=== PATIENT | female | born 2000 | race Two or more races ===

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

== ENCOUNTER 2018-02-27 13:46 | Emergency (ER) | payer SELFPAY ==
--- NOTE | 2018-02-27 14:10 | ER Document Report ---
ED Medical Screen (RME) - General Chief Complaint: Abdominal Pain Stated Complaint: ABDOMEN PAIN Time Seen by Provider: 02/27/18 14:08 Mode of Arrival: Ambulatory Information source: Patient TRAVEL OUTSIDE OF THE [place] IN LAST 30 DAYS: No - HPI Patient complains to provider of: abd pain; ? Onset: This morning - pt has had 2 positive HPT's and is now having abdominal pain - Related Data Allergies/Adverse Reactions: No Known Allergies Allergy (Verified 09/19/17 09:41) Past Medical History Renal/ Medical History: Denies: Hx Peritoneal Dialysis - Immunizations Hx Diphtheria, Pertussis, Tetanus Vaccination: No Physical Exam - Vital signs Vitals: Temp Pulse Resp BP Pulse Ox 98.1 F 73 16 111/61 99 02/27/18 13:50 02/27/18 13:50 02/27/18 13:50 02/27/18 13:50 02/27/18 13:50 Course - Vital Signs Vital signs: Temp Pulse Resp BP Pulse Ox 98.1 F 73 16 111/61 99 02/27/18 13:50 02/27/18 13:50 02/27/18 13:50 02/27/18 13:50 02/27/18 13:50
[2018-02-27 14:35] LABS: ABSOLUTE EOSINOPHILS # (AUTO) 0.1 10^3/uL (0.0-0.6); ABSOLUTE LYMPHOCYTES (AUTO) 2.3 10^3/uL (0.5-4.7); ABSOLUTE MONOCYTES (AUTO) 0.5 10^3/uL (0.1-1.4); ABSOLUTE NEUT (AUTO) 4.4 10^3/uL (1.7-8.2); BASOPHILS % (AUTO) 0.4 % (0-2); HEMATOCRIT 41.3 % (36.0-47.0); HEMOGLOBIN 13.8 g/dL (12.0-15.5); LYMPHOCYTES % (AUTO) 31.6 % (13-45); MEAN CORPUSCULAR HEMOGLOBIN 28.5 pg (27.0-33.4); MEAN CORPUSCULAR HGB CONC 33.4 g/dL (32.0-36.0); MEAN CORPUSCULAR VOLUME 85 fl (80-97); MONOCYTES % (AUTO) 7.3 % (3-13); PLATELET COUNT 282 10^3/uL (150-450); RED BLOOD COUNT 4.85 10^6/uL (3.72-5.28); RED CELL DISTRIBUTION WIDTH 14.5 % (11.5-14.0); SEGMENTED NEUTROPHILS % (AUTO) 59.7 % (42-78); TOTAL CELLS COUNTED % (AUTO) 100 %; WHITE BLOOD COUNT 7.4 10^3/uL (4.0-10.5)
[2018-02-27 14:38] LABS: APPEARANCE,URINE SLIGHTLY-CLOUDY; BILIRUBIN,URINE NEGATIVE (NEGATIVE); COLOR,URINE YELLOW; GLUCOSE, URINE NEGATIVE (NEGATIVE); KETONES,URINE NEGATIVE (NEGATIVE); LEUKOCYTE ESTERASE,URINE NEGATIVE (NEGATIVE); NITRITE,URINE NEGATIVE (NEGATIVE); PROTEIN,URINE NEGATIVE (NEGATIVE); URINE SPECIFIC GRAVITY 1.023
[2018-02-27 14:59] LABS: ALANINE AMINOTRANSFERASE 31 U/L (9-52); ALBUMIN 4.3 g/dL (3.5-5.0); ALKALINE PHOSPHATASE 66 U/L (38-126); ANION GAP 10 (5-19); ASPARTATE AMINO TRANSFERASE 21 U/L (14-36); BILIRUBIN,DIRECT 0.2 mg/dL (0.0-0.4); BILIRUBIN,TOTAL 0.4 mg/dL (0.2-1.3); BLOOD UREA NITROGEN 8 mg/dL (7-20); CALCIUM 9.3 mg/dL (8.4-10.2); CARBON DIOXIDE 25 mmol/L (22-30); CHLORIDE 105 mmol/L (98-107); GLUCOSE 116 mg/dL (75-110); POTASSIUM 3.9 mmol/L (3.6-5.0); SODIUM 140.3 mmol/L (137-145); TOTAL PROTEIN 7.2 g/dL (6.3-8.2)
--- NOTE | 2018-02-27 16:00 | ER Document Report ---
ED GI/ - General Chief Complaint: Abdominal Pain Stated Complaint: ABDOMINAL PAIN Time Seen by Provider: 02/27/18 14:08 Mode of Arrival: Ambulatory Information source: Patient Notes: 18-year-old female presents to ED for complaint of pelvic pain bilaterally starting yesterday. States she had her first positive test on . No discharge or vaginal bleeding. She states this is her second she has a year 2-month-old child. She denies any medical history and denies any surgeries. Patient is alert and oriented speaking in full sentences walks with a even steady gait. I use [employer] cone machine feeder #[id number] for this interview. TRAVEL OUTSIDE OF THE [place] IN LAST 30 DAYS: No - HPI Patient complains to provider of: Pelvic pain, Onset: Yesterday Timing/Duration: Gradual Quality of pain: Sharp Severity at maximum: Moderate Severity in ED: Moderate Pain Level: 3 Location: Pelvis Vaginal bleeding (Compared to normal period): Spotting LMP: January 04, 2018 : 2 Para: 1 OB ultrasound done: Yes Associated symptoms: Other - Pelvic pain bilateral worse on the left Exacerbated by: Movement, Walking Relieved by: Denies Similar symptoms previously: Yes Recently seen / treated by doctor: No - Related Data Allergies/Adverse Reactions: No Known Allergies Allergy (Verified 09/19/17 09:41) Past Medical History - General Information source: Patient - Social History Smoking Status: Never Smoker Cigarette use (# per day): No Chew tobacco use (# tins/day): No Smoking Education Provided: No Frequency of alcohol use: None Drug Abuse: None Lives with: Family Family History: None, Reviewed & Not Pertinent Patient has suicidal ideation: No Patient has homicidal ideation: No - Past Medical History Cardiac Medical History: Reports: None Pulmonary Medical History: Reports: None EENT Medical History: Reports: None Neurological Medical History: Reports: None Endocrine Medical History: Reports: None Renal/ Medical History: Reports: None Malignancy Medical History: Reports: None GI Medical History: Reports: None Musculoskeletal Medical History: Reports None Skin Medical History: Reports None Psychiatric Medical History: Reports: None Traumatic Medical History: Reports: None Infectious Medical History: Reports: None Surgical Hx: Negative Past Surgical History: Reports: None - Immunizations Immunizations up to date: Yes Hx Diphtheria, Pertussis, Tetanus Vaccination: Yes - 2017 Review of Systems - Review of Systems Constitutional: No symptoms reported EENT: No symptoms reported Cardiovascular: No symptoms reported Respiratory: No symptoms reported Gastrointestinal: No symptoms reported Genitourinary: No symptoms reported Female Genitourinary: No symptoms reported, , Other - Pelvic pain worse on the left Musculoskeletal: No symptoms reported Skin: No symptoms reported Hematologic/Lymphatic: No symptoms reported Neurological/Psychological: No symptoms reported Physical Exam - Vital signs Vitals: Temp Pulse Resp BP Pulse Ox 98.1 F 73 16 111/61 99 02/27/18 13:50 02/27/18 13:50 02/27/18 13:50 02/27/18 13:50 02/27/18 13:50 Interpretation: Normal - General General appearance: Appears well, Alert - HEENT Head: Normocephalic, Atraumatic Eyes: Normal Pupils: PERRL - Respiratory Respiratory status: No respiratory distress Chest status: Nontender Breath sounds: Normal Chest palpation: Normal - Cardiovascular Rhythm: Regular Heart sounds: Normal auscultation Murmur: No - Abdominal Inspection: Normal Distension: No distension Bowel sounds: Normal Tenderness: Tender - Lower abdomen/pelvic tenderness Organomegaly: No organomegaly - Back Back: Normal, Nontender - Extremities General upper extremity: Normal inspection, Nontender, Normal color, Normal ROM , Normal temperature General lower extremity: Normal inspection, Nontender, Normal color, Normal ROM , Normal temperature, Normal weight bearing. No: Linda's sign - Neurological Neuro grossly intact: Yes Cognition: Normal Orientation: AAOx4 [place] Coma Scale Eye Opening: Spontaneous Kamran Coma Scale Verbal: Oriented [place] Coma Scale Motor: Obeys Commands Kamran Coma Scale Total: 15 Speech: Normal Motor strength normal: LUE, RUE, LLE, RLE Sensory: Normal - Psychological Associated symptoms: Normal affect, Normal mood - Skin Skin Temperature: Warm Skin Moisture: Dry Skin Color: Normal Course - Re-evaluation Re-evalutation: 02/28/18 01:26 Of ultrasound results with patient with use of Rosaura interpretator Nitesh. After patient has numerous questions patient did verbalize understanding and agreement with treatment plan. Patient is to follow-up with BUSINESS OPERATIONS ANALYST on Thursday. Name and number of BUSINESS OPERATIONS ANALYST was given to patient. I did attempt to call BUSINESS OPERATIONS ANALYST at the emergency room but the doctor transmission superintendent is a feeling for the weekend and does not schedule patient says states she was not able to tell the office about this patient. I did reinforce to the patient that she needed to call [facility] first thing on Thursday and get a follow-up appointment. - Vital Signs Vital signs: Temp Pulse Resp BP Pulse Ox 97.7 F 76 16 117/65 100 02/27/18 18:02 02/27/18 18:02 02/27/18 18:02 02/27/18 18:02 02/27/18 18:02 - Laboratory Result Diagrams: 02/27/18 14:20 02/27/18 14:20 Laboratory results interpreted by me: 02/27/18 02/27/18 02/27/18 14:20 14:20 14:20 RDW 14.5 H Glucose 116 H Beta HCG, Quant 4118.80 H Urine Urobilinogen 2.0 H Urine HCG, Qual POSITIVE H - Diagnostic Test Radiology reviewed: Image reviewed, Reports reviewed Discharge - Discharge Clinical Impression: Pelvic pain affecting in first trimester, antepartum Condition: Stable Disposition: HOME, SELF-CARE Additional Instructions: Your ultrasound shows a 7-week 2-day gestational sac with a yolk sac but no pole. There is a small 7 x 9 mm cystic area beside the gestational sac. I have given you a copy of all of your labs and ultrasound. The BUSINESS OPERATIONS ANALYST that is transmission superintendent this weekend does not work in the office and cannot schedule a follow- up appointment at this time It is very important that you call BUSINESS OPERATIONS ANALYST on Thursday and schedule a follow-up appointment on Thursday. FOLLOW-UP CARE: If you have been referred to a physician for follow-up care, call the physician s office for an appointment as you were instructed or within the next two days. If you experience worsening or a significant change in your symptoms, notify the physician immediately or return to the Emergency Department at any time for re-evaluation. Forms: Return to Work Referrals: [facility] [Provider Group] - 03/01/18
--- NOTE | 2018-02-27 16:10 | RADIOLOGY REPORT (SQ) ---
EXAM DESCRIPTION: U/S OB TRANSVAG W/DOPPLER COMPLETED DATE/TIME: 02/27/2018 3:48 pm REASON FOR STUDY: abd pain COMPARISON: None. TECHNIQUE: Limited transvaginal grayscale ultrasound for evaluation of specific requested obstetrica l parameters. LIMITATIONS: None. FINDINGS: CERVICAL LENGTH: 2.8 cm Closed. Irregular shape to the presumed gestational sac measuring 2.8 cm in length by 10 mm thickness, this a ppears to contain a small yolk sac measuring 4.4 mm suggesting a 7 week 2 day gestation. No po le is identified at this time. Adjacent to the presumed gestational sac is a 7 x 9 mm cystic area. OTHER: Nonvisualized ovaries. IMPRESSION: Irregular shape to the presumed gestational sac measuring 2.8 cm in length by 10 mm thic kness, this appears to contain a small yolk sac measuring 4.4 mm suggesting a 7 week 2 day gestation. No pole is identified at this time. Adjacent to the presumed gestational sac is a 7 x 9 mm c ystic area. Nonvisualized ovaries. Short interval follow-up is recommended. Trimester of : First trimester - 0 to 13 weeks. TECHNICAL DOCUMENTATION: JOB ID: [id number] [place]-72 2010 [employer]- All Rights Reserved Reading location - IP/workstation name: [email or web address]
[2018-02-27 18:04] VITALS: BP 117/65
== END 2018-02-27 18:02 | disposition home or self-care (01) ==
LOC: ER 13:46
DX: O26.91 Pregnancy related conditions, unspecified, first trimester (principal); R10.2 Pelvic and perineal pain; Z3A.01 Less than 8 weeks gestation of pregnancy
CPT/HCPCS: 36415; 76817; 80053; 81001; 81025; 84702; 85025; 93976; 99284

== ENCOUNTER → 2018-03-22 | Outpatient (CLI) | payer SELFPAY ==
--- NOTE | 2018-03-22 16:16 | RADIOLOGY REPORT (SQ) ---
EXAM DESCRIPTION: U/S [id number] TRNABD 1GES W/ODOP COMPLETED DATE/TIME: 03/22/2018 2:00 pm REASON FOR STUDY: ENCTR FOR SUPERVISION OF OTHER NORMAL , 1ST TRIMESTER. (Z34.81) Z34.81 E NCOUNTER FOR SUPRVSN OF NORMAL , FIRST TRIM COMPARISON: 02/27/2018. TECHNIQUE: Transabdominal static and realtime grayscale images acquired of the pelvis. Additional se lected spectral and color Doppler images recorded. All images stored on PACs. bHCG: Not available. CLINICAL DATES: 9 week 4 day. LIMITATIONS: None. FINDINGS: FETUS: Single Living intrauterine . ULTRASOUND EGA: 8 week 0 day. ULTRASOUND FRANCESCA: 11/01/2018. EFW: Not applicable less than 20 weeks. CRL: 1.62 cm. FHR: 162 beats per minute. SURVEY: No visualized anomalies. AMNIOTIC FLUID: Adequate amount. PLACENTA: Not yet developed due to early gestation. SUBCHORIONIC BLEED: No. SIZE OF BLEED: Not applicable. UTERUS: There is a cystic lesion in the fundus of the uterus near the gestational sac, measuring 1 x 1.4 cm. CERVICAL LENGTH: Not measured. RIGHT ADNEXA: Normal ovary with normal vascular flow. No adnexal free fluid. No adnexal masses. LEFT ADNEXA: Normal ovary with normal vascular flow. No adnexal free fluid. No adnexal masses. FREE FLUID: None. OTHER: No other significant finding. IMPRESSION: LIVING INTRAUTERINE . EGA 8 WEEK 0 DAY. CYSTIC AREA IN THE UTERUS NEAR THE GESTATIONAL SAC AGAIN SEEN. THIS IS SLIGHTLY LARGER. ETIOLOGY NO T CLEAR. POTENTIALLY THIS COULD BE A TWIN WITH A 2ND GESTATIONAL SAC AND NO POLE VIS IBLE. WILL NEED FOLLOW-UP. Trimester of : First - 0 to 13 weeks. TECHNICAL DOCUMENTATION: JOB ID: [id number] [employer]- All Rights Reserved rev Reading location - IP/workstation name: [email or web address]
== END ==
LOC: RAD 13:20
PROVIDERS: ATTEND Nurse Practitioner
DX: Z34.81 Encounter for supervision of other normal pregnancy, first trimester (principal)
CPT/HCPCS: 76801

== ENCOUNTER 2018-05-21 23:38 | Emergency (ER) | payer SELFPAY ==
[2018-05-21 23:55] VITALS: BP 128/76
--- NOTE | 2018-05-22 12:43 | EKG REPORT ---
SEVERITY:- BORDERLINE ECG - SINUS TACHYCARDIA BORDERLINE T ABNORMALITIES, INFERIOR LEADS : Confirmed by: Hui Frye MD 22-May-2018 12:41:54
== END 2018-05-22 01:38 | disposition left against medical advice (07) ==
LOC: ER 23:38
DX: Z53.21 Procedure and treatment not carried out due to patient leaving prior to being seen by health care provider (principal)
CPT/HCPCS: 93005; 93010

== ENCOUNTER → 2018-06-04 | Outpatient (CLI) | payer SELFPAY ==
--- NOTE | 2018-06-04 16:06 | RADIOLOGY REPORT (SQ) ---
EXAM DESCRIPTION: U/S OB 14+ TRNABD 1GES W/O DOP COMPLETED DATE/TIME: 06/04/2018 3:54 pm REASON FOR STUDY: Z34.82 ENCOUNTER FOR SUPERVISION OF OTHER NORMAL ,SECOND TRIMESTER Z34.82 ENCOUNTER FOR SUPRVSN OF NORMAL , SECOND TRI COMPARISON: None. TECHNIQUE: Static and Dynamic grayscale imaging performed of gravid uterus using transabdominal appr oach. Additional selected color Doppler and spectral images recorded. All stored on PACS. LIMITATIONS: None. FINDINGS: FETUSES SEEN:1 EGA: 20 week 0 day. Calculated using BPD,FL,HC,AC documented on images. Clinical age 18 week 4 day. FRANCESCA: 10/22/2018. EFW: 327 grams VANESA: The largest pocket measures 3.2 cm. PLACENTA: Posterior. GRADE: I PRESENTATION: Cephalic. ANATOMY: HEART RATE: 143 beats per minute. FOUR CHAMBER HEART: Visualized. THREE VESSEL CORD: Yes. CORD INSERTION: Visualized. KIDNEYS AND BLADDER: Visualized. Appear normal. STOMACH: Visualized. Appears normal. SPINE: Normal as visualized. BRAIN AND LATERAL VENTRICLES: Visualized. Appear normal. OTHER: No other significant finding. MATERNAL ADNEXA: Maternal ovaries not visualized. CERVICAL LENGTH: 5.9 cm. Closed. OTHER: No other significant finding. IMPRESSION: LIVING INTRAUTERINE . ESTIMATED GESTATIONAL AGE 20 WEEK 0 DAY. NO VISUALIZED ANOMALIES. Trimester of : Second trimester - 13 weeks 1 day to 27 weeks 6 days. TECHNICAL DOCUMENTATION: JOB ID: [id number] [employer]- All Rights Reserved Reading location - IP/workstation name: [email or web address]
== END ==
LOC: RAD 16:14
PROVIDERS: ATTEND Nurse Practitioner
DX: Z34.82 Encounter for supervision of other normal pregnancy, second trimester (principal)
CPT/HCPCS: 76805

== ENCOUNTER 2018-10-21 23:18 | Inpatient (IN) | payer SELFPAY ==
[2018-10-21 23:50] LABS: APPEARANCE,URINE CLEAR; BILIRUBIN,URINE NEGATIVE (NEGATIVE); COLOR,URINE YELLOW; GLUCOSE, URINE NEGATIVE (NEGATIVE); KETONES,URINE NEGATIVE (NEGATIVE); LEUKOCYTE ESTERASE,URINE NEGATIVE (NEGATIVE); NITRITE,URINE NEGATIVE (NEGATIVE); PROTEIN,URINE NEGATIVE (NEGATIVE); URINE SPECIFIC GRAVITY 1.013; UROBILINOGEN,URINE NEGATIVE mg/dL (<2.0)
[2018-10-22 00:12] LABS: URINE AMPHETAMINES SCREEN NEGATIVE; URINE BARBITURATES SCREEN NEGATIVE; URINE BENZODIAZEPINES SCREEN NEGATIVE; URINE COCAINE SCREEN NEGATIVE; URINE MARIJUANA (THC) SCREEN NEGATIVE; URINE METHADONE SCREEN NEGATIVE; URINE PHENCYCLIDINE SCREEN NEGATIVE
[2018-10-22] MEDS ORDERED: MISOPROSTOL 0.2 MG TABLET ONE (04:29)
[2018-10-22] MEDS ORDERED: LIDOCAINE 1% INJ-PF (10 MG/ML) 30 ML SDV ONE (04:29)
[2018-10-22] MEDS ORDERED: OXYTOCIN 10 UNIT/ML VIAL ONE (04:29)
[2018-10-22] MEDS ORDERED: OXYTOCIN/NORMAL SALINE 20 UNIT/1,000 ML RTUINJ ONE (04:29)
[2018-10-22] MEDS ORDERED: RINGERS SOLUTION,LACTATED 1,000 ML IV ONE (04:30)
[2018-10-22] MEDS ORDERED: RINGERS SOLUTION,LACTATED 1,000 ML IV PRN (04:30)
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
[2018-10-22 05:41] LABS: HEMATOCRIT 36.7 % (36.0-47.0); HEMOGLOBIN 11.8 g/dL (12.0-15.5); MEAN CORPUSCULAR HEMOGLOBIN 24.9 pg (27.0-33.4); MEAN CORPUSCULAR HGB CONC 32.1 g/dL (32.0-36.0); MEAN CORPUSCULAR VOLUME 78 fl (80-97); RED BLOOD COUNT 4.74 10^6/uL (3.72-5.28); RED CELL DISTRIBUTION WIDTH 16.6 % (11.5-14.0); WHITE BLOOD COUNT 11.9 10^3/uL (4.0-10.5)
[2018-10-22 06:08] LABS: PLATELET COUNT 176 10^3/uL (150-450)
[2018-10-22 06:10] LABS: PLATELET CLUMPS PRESENT; PLATELET COMMENT ADEQUATE
[2018-10-22] MEDS ORDERED: ACETAMINOPHEN 325 MG TABLET PO PRN (06:21)
[2018-10-22] MEDS ORDERED: ZOLPIDEM TARTRATE 5 MG TABLET PO PRN (06:21)
[2018-10-22] MEDS ORDERED: DIBUCAINE 1% OINTMENT 56 GM TP PRN (06:21)
[2018-10-22] MEDS ORDERED: MEASLES,MUMPS&RUBELLA VACC/PF 0.5 ML VIAL SUBCUT PRN (06:21)
[2018-10-22] MEDS ORDERED: DIPH/PERTUSS(ACELL)/TETANUS VAC/PF 0.5 ML SYR (>=10YO) IM PRN (06:21)
[2018-10-22] MEDS ORDERED: DIPHENHYDRAMINE HCL 25 MG CAPSULE PO PRN (06:21)
[2018-10-22] MEDS ORDERED: GLYCERIN/WITCH HAZEL LEAF 1 EACH MED..WIPE TP PRN (06:21)
[2018-10-22] MEDS ORDERED: PROMETHAZINE HCL 25 MG SUPP.RECT PR PRN (06:21)
[2018-10-22] MEDS ORDERED: PSEUDOEPHEDRINE HCL 30 MG TABLET PO PRN (06:21)
[2018-10-22] MEDS ORDERED: PROMETHAZINE HCL INJ 25 MG/1 ML VIAL IV PRN (06:21)
[2018-10-22] MEDS ORDERED: MAGNESIUM HYDROXIDE SUSP 30 ML UDCUP PO PRN (06:21)
[2018-10-22] MEDS ORDERED: ACETAMINOPHEN WITH CODEINE #3 TABLET ONE (06:21)
[2018-10-22] MEDS ORDERED: NA PHOS,M-B/NA PHOS,DI-BA (ADULT) 133 ML ENEMA PR PRN (06:21)
[2018-10-22] MEDS ORDERED: ACETAMINOPHEN WITH CODEINE #3 TABLET PO PRN (06:21)
[2018-10-22] MEDS ORDERED: BENZOCAINE/MENTHOL AEROSOL SPRAY 56 ML TOP PRN (06:21)
[2018-10-22] MEDS ORDERED: OXYTOCIN/NORMAL SALINE 20 UNIT/1,000 ML RTUINJ IV PRN (06:21)
[2018-10-22] MEDS ORDERED: PROMETHAZINE HCL 25 MG TABLET PO PRN (06:21)
--- NOTE | 2018-10-22 07:08 | Delivery Summary ---
Del Sum A-C Datetime Report Generated by CPN: 10/22/2018 07:08 DELIVERY PERSONNEL DELIVERY PERSONNEL: [id number] Delivery Doctor:: Roxi Cruz MD Nurse Assessment Coordinator Certified:: Kyra Staton CNM Labor and Delivery Nurse:: Ceci Souza RN Nursery Nurse:: Karely Rodriguez RN Nursery Nurse:: LISSETH Montilla Tech/FUR COAT SEWER: Eugenia Dominguez, ST MATERNAL INFORMATION Delivery Anesthesia: None Medications After Delivery: Pitocin Drip 20 Units/1000ml NSS Maternal Complications: None Provider Comments: VMI delivered in SARA presentation. No nuchal cord. Shoulders and body delivered without difficulty. Cord doubly clamped and cut and infant to maternal abdomen for NRP. Placenta delivered intact spontaneously. FF at U. Perineal and periurethral lacerations repaired in usual fashion. Good hemostasis. Mother and baby stable upon provider leaving the room LABOR SUMMARY EDC: 10/21/2018 00:00 No. Babies in Womb: 1 Attempted: No Labor Anesthesia: None LABOR INFORMATION Reason for Induction: Not Applicable Onset of Labor: 10/22/2018 02:30 Complete Dilatation: 10/22/2018 05:44 Oxytocin: N/A Group B Beta Strep: negative Antibiotics # of Doses: 0 Antibiotics Time of Last Dose: N/A Name of Antibiotic Given: N/A Steroids Given: None Reason Steroids Not Administered: Not Applicable MEMBRANES Membranes Rupture Method: Artificial Rupture of Membranes: 10/22/2018 04:59 Length of Rupture (hr): 0.82 Amniotic Fluid Color: Clear Amniotic Fluid Amount: Moderate Amniotic Fluid Odor: Normal STAGES OF LABOR Stage 1 hr: 3 Stage 1 min: 14 Stage 2 hr: 0 Stage 2 min: 4 Stage 3 hr: 0 Stage 3 min: 2 Total Time in Labor hr: 3 Total Time in Labor min: 20 VAGINAL DELIVERY Episiotomy: None Laceration #1: Perineal Laceration Extension #1: First Degree Laceration #2: Periurethral Laceration Extension #2: N/A Laceration Repair: Yes Laceration Repair Note: 1st degree ML perineal laceration and periurethral laceration repaired in usual fashion. Sponge Count Correct: Yes Sharps Count Correct: Yes CSECTION DELIVERY Primary Indication: N/A Secondary Indication: N/A CSection Incidence: N/A Labor: N/A Elective: N/A BABY A INFORMATION Delivery Date/Time: 10/22/2018 05:48 Method of Delivery: Vaginal Born in Route : No : N/A Forceps: N/A Vacuum Extraction: N/A Shoulder Dystocia : No PRESENTATION/POSITION BABY A Presentation: Cephalic Cephalic Presentation: Vertex Vertex Position: Right Occipital Anterior Breech Presentation: N/A PLACENTA INFORMATION BABY A Placenta Delivery Time : 10/22/2018 05:50 Placenta Method of Delivery: Spontaneous Placenta Status: Delivered SCORES BABY A Heart Rate 1 min: >100 bpm Resp Effort 1 min: Good Cry Reflex Irritability 1 min: Cough or Sneeze or Pulls Away Muscle Tone 1 min: Active Motion Color 1 min: Body Eaton, Extremities Blue Resuscitation Effort 1 min: Tactile Stimulation SCORE 1 MIN: 9 Heart Rate 5 min: >100 bpm Resp Effort 5 min: Good Cry Reflex Irritability 5 min: Cough or Sneeze or Pulls Away Muscle Tone 5 min: Active Motion Color 5 min: Body Eaton, Extremities Blue Resuscitation Effort 5 min: Tactile Stimulation SCORE 5 MIN: 9 INFANT INFORMATION BABY A Gestational Age at Delivery: 40.1 Gestational Status: Full Term- 39- 40.6 Weeks Outcome : Liveborn Infant Condition : Stable Sex: Male IDENTIFICATION BABY A Verification Date/Time: 10/22/2018 01:17 ID Band Number: [id number] Mother's Name Verified: Yes Infant RN Verifying : C. Gentilin RN Additional Verifying Personnel: [employer] RN WEIGHT/LENGTH BABY A Infant Birthweight (gm): 3237 Weight (lb): 7 Infant Weight (oz): 2 Length (in): 20.50 Infant Length (cm): 52.07 CORD INFORMATION BABY A No. Cord Vessels: 3 Nuchal Cord : Around Neck x2, Tight Cord Blood Taken: Yes-For Storage (Mom's Blood type +) Suction: Mouth; Nose ASSESSMENT BABY A Skin to Skin: Yes Care By: KSingley RN Transferred To: Remains with Mother BABY B INFORMATION : N/A SIGNATURES Signature: with User ID: [email or web address]
[2018-10-22 07:13] LABS: EOSINOPHILS % (AUTO) 0.3 % (0-6); LYMPHOCYTES % (AUTO) 23.2 % (13-45); MONOCYTES % (AUTO) 6.3 % (3-13); SEGMENTED NEUTROPHILS % (AUTO) 69.7 % (42-78)
[2018-10-22 07:14] LABS: ABSOLUTE BASOPHILS # (AUTO) 0.1 10^3/uL (0.0-0.2); ABSOLUTE LYMPHOCYTES (AUTO) 2.8 10^3/uL (0.5-4.7); ABSOLUTE MONOCYTES (AUTO) 0.8 10^3/uL (0.1-1.4); ABSOLUTE NEUT (AUTO) 8.3 10^3/uL (1.7-8.2); BASOPHILS % (AUTO) 0.5 % (0-2); TOTAL CELLS COUNTED % (AUTO) 100 %
[2018-10-22] MEDS ORDERED: IBUPROFEN 800 MG TABLET ONE (07:55)
[2018-10-22] MEDS ORDERED: PRENATAL VITAMIN W DHA CAPSULE PO ONE (09:33)
[2018-10-22] MEDS ORDERED: FAMOTIDINE 20 MG TABLET ONE (09:33)
[2018-10-22] MEDS ORDERED: SENNOSIDES/DOCUSATE 8.6-50 MG 1 EACH TABLET ONE (09:33)
[2018-10-22] MEDS ORDERED: DOCUSATE SODIUM 100 MG CAPSULE ONE (09:34)
[2018-10-22] MEDS ORDERED: FERROUS SULFATE 325 MG TABLET PO ONE (09:34)
[2018-10-22] MEDS: PRENATAL VITAMIN W DHA CAPSULE PO SCH (09:41)
[2018-10-22] MEDS: SENNOSIDES/DOCUSATE 8.6-50 MG 1 EACH TABLET PO SCH (09:42)
[2018-10-22] MEDS: FAMOTIDINE 20 MG TABLET PO SCH ×2 (09:42→21:34)
[2018-10-22] MEDS: DOCUSATE SODIUM 100 MG CAPSULE PO SCH ×2 (09:42→17:21)
[2018-10-22] MEDS: FERROUS SULFATE 325 MG TABLET PO SCH ×2 (09:42→17:22)
[2018-10-22] MEDS: ACETAMINOPHEN WITH CODEINE #3 TABLET PO PRN (12:25)
[2018-10-22] MEDS: IBUPROFEN 800 MG TABLET PO SCH ×2 (13:28→21:34)
[2018-10-23] MEDS: IBUPROFEN 800 MG TABLET PO SCH ×3 (05:44→21:01)
[2018-10-23 07:39] LABS: HEMATOCRIT 31.5 % (36.0-47.0); HEMOGLOBIN 10.3 g/dL (12.0-15.5); MEAN CORPUSCULAR HEMOGLOBIN 25.5 pg (27.0-33.4); MEAN CORPUSCULAR HGB CONC 32.6 g/dL (32.0-36.0); MEAN CORPUSCULAR VOLUME 78 fl (80-97); PLATELET COUNT 194 10^3/uL (150-450); RED BLOOD COUNT 4.04 10^6/uL (3.72-5.28); RED CELL DISTRIBUTION WIDTH 16.7 % (11.5-14.0); WHITE BLOOD COUNT 9.1 10^3/uL (4.0-10.5)
[2018-10-23] MEDS: PRENATAL VITAMIN W DHA CAPSULE PO SCH (09:44)
[2018-10-23] MEDS: DOCUSATE SODIUM 100 MG CAPSULE PO SCH ×2 (09:44→17:31)
[2018-10-23] MEDS: FAMOTIDINE 20 MG TABLET PO SCH ×2 (09:44→21:01)
[2018-10-23] MEDS: FERROUS SULFATE 325 MG TABLET PO SCH ×2 (09:44→17:31)
[2018-10-23] MEDS: SENNOSIDES/DOCUSATE 8.6-50 MG 1 EACH TABLET PO SCH (09:45)
--- NOTE | 2018-10-23 13:07 | PDOC PROGRESS REPORT ---
Subjective-OB Progress Note for:: 10/23/18 Subjective: Pt doing well. Denies c/o heavy bleeding, difficulty voiding. Regular diet. Bonding with baby. Physical Exam (OB) Vital Signs: Temp Pulse Resp BP Pulse Ox 98.1 F 83 15 96/56 L 99 10/23/18 08:01 10/23/18 08:01 10/23/18 08:01 10/23/18 08:01 10/23/18 08:01 Intake & Output 10/22/18 10/23/18 10/24/18 06:59 06:59 06:59 Intake Total 480 Balance 480 Weight 85.275 kg - PIH/Pre-Eclampsia Clonus: Negative Headache: Absent Epigastric Pain: No Visual Changes: No - Lochia Lochia Amount: Small 10-25 ml Lochia Color: Rubra/Red - Abdomen Description: Soft Hernia Present: No Fundal Description: Firm, Midline Fundal Height: u/u - u/2 Objective-Diagnostic Laboratory: 10/23/18 06:56 10/23/18 06:56 WBC 9.1 RBC 4.04 Hgb 10.3 L Hct 31.5 L MCV 78 L MCH 25.5 L MCHC 32.6 RDW 16.7 H Plt Count 194 Assessment and Plan(PN) - Assessment and Plan (1) Obstetrical laceration, first degree Is this a current diagnosis for this admission?: Yes (2) Vaginal delivery Is this a current diagnosis for this admission?: Yes - Time Spent with Patient Time with patient: Less than 15 minutes Medications reviewed and adjusted accordingly: Yes - Disposition Anticipated Discharge: Home Within: within 24 hours
[2018-10-23] MEDS: ACETAMINOPHEN WITH CODEINE #3 TABLET PO PRN ×2 (16:38→20:58)
[2018-10-24] MEDS: ACETAMINOPHEN WITH CODEINE #3 TABLET PO PRN (04:20)
[2018-10-24] MEDS: IBUPROFEN 800 MG TABLET PO SCH (05:12)
--- NOTE | 2018-10-24 09:16 | PDOC DISCHARGE SUMMARY ---
Final Diagnosis Discharge Date: 10/24/18 - Final Diagnosis (1) Obstetrical laceration, first degree Is this a current diagnosis for this admission?: Yes (2) Vaginal delivery Is this a current diagnosis for this admission?: Yes Discharge Data - Discharge Medication Home Medications: Vit No.130/Iron/Folic [ Vitamins] 1 each PO DAILY 10/22/18 Reason(s) for Admission: Onset of Labor Procedures: NST Intrapartum Procedure(s): Spontaneous Vaginal Delivery Complication(s): Laceration-Vaginal, Laceration-Perineal Laceration-Degree: 1st - Diagnosis Test Laboratory: Temp Pulse Resp BP Pulse Ox 98.1 F 83 15 96/56 L 99 10/23/18 08:01 10/23/18 08:01 10/23/18 08:01 10/23/18 08:01 10/23/18 08:01 10/21/18 10/22/18 10/23/18 23:27 05:20 06:56 RBC 4.74 4.04 Hgb 11.8 L 10.3 L Hct 36.7 31.5 L Urine Opiates Screen NEGATIVE - Discharge information/Instructions Discharge Activity: Balance Activity w/Rest, Pelvic Rest Discharge Diet: Regular Disposition: HOME, SELF-CARE Follow up with: [facility] in: 4, Weeks
[2018-10-24] MEDS: FAMOTIDINE 20 MG TABLET PO SCH (11:05)
[2018-10-24] MEDS: FERROUS SULFATE 325 MG TABLET PO SCH (11:05)
[2018-10-24] MEDS: PRENATAL VITAMIN W DHA CAPSULE PO SCH (11:06)
[2018-10-24] MEDS: SENNOSIDES/DOCUSATE 8.6-50 MG 1 EACH TABLET PO SCH (11:06)
[2018-10-24] MEDS: DOCUSATE SODIUM 100 MG CAPSULE PO SCH (11:09)
[2018-10-24 12:15] VITALS: BP 111/61
== END 2018-10-24 14:52 | disposition home or self-care (01) | DRG 807 ==
LOC: LC 23:18 → LR 10-22 04:31 → 2S 10-22 11:57
PROVIDERS: ADMIT Student in an Organized Health Care Education/Training Program; ATTEND Student in an Organized Health Care Education/Training Program
PROC: 10E0XZZ Delivery of Products of Conception, External Approach (ICD-10-PCS; principal; 2018-10-22)
PROC: 0HQ9XZZ Repair Perineum Skin, External Approach (ICD-10-PCS; 2018-10-22)
DX: O69.1XX0 Labor and delivery complicated by cord around neck, with compression, not applicable or unspecified (principal); Z37.0 Single live birth; O70.0 First degree perineal laceration during delivery; Z3A.40 40 weeks gestation of pregnancy
CPT/HCPCS: 36415; 80307; 81005; 85025; 85027; 86592; 86850; 86900; 86901; J2590; J3490

== ENCOUNTER 2020-06-05 11:21 | Emergency (ER) | payer SELFPAY ==
--- NOTE | 2020-06-05 11:54 | ER Document Report ---
ED Medical Screen (RME) - General Chief Complaint: Chest Pain Stated Complaint: CHEST PAIN,LEFT ARM PAIN Time Seen by Provider: 06/05/20 11:47 Primary Care Provider: AVRIL GARCIA APRN [Primary Care Provider] - Follow up as needed TRAVEL OUTSIDE OF THE [place] IN LAST 30 DAYS: No - HPI Notes: 06/05/20 11:53 20-year-old female [place]i-speaking only, whose is translating presents to the emergency room today for evaluation of left-sided chest pain that radiates down her left arm that has been constant for the last week. She reports she does have pain with deep breaths. Denies any radiation to her back or her neck, denies any nausea or vomiting. Patient states that her pain initially woke her from sleep a week ago, and that has been constant. Denies any traumas falls, fevers or chills. Patient has tried Tylenol for pain which has not helped. The pain has become progressive and this is what brought her to the emergency room today. Non-smoker. Denies any family cardiac history with mother and father, denies personal cardiac history. Non-smoker. Reports pain 4 out of 5, wheezing pain. LMP 06/04/2020 I have greeted and performed a rapid initial assessment of this patient. A comprehensive ED assessment and evaluation of the patient, analysis of test results and completion of the medical decision making process will be conducted by additional ED providers. PHYSICAL EXAMINATION: GENERAL: Well-appearing, well-nourished and in no acute distress. NECK: Normal range of motion CV: s1, s2 regular. Reproducible left-sided chest pain on palpation LUNGS: No respiratory distress Musculoskeletal: Normal range of motion NEUROLOGICAL: Normal speech, normal gait. SKIN: Warm, Dry, normal turgor, no rashes or lesions noted. The patient was evaluated during a global COVID-19 pandemic and that diagnosis was suspected/considered upon their initial presentation. Their evaluation, treatment and testing was consistent with current guidelines for patients who present with complaints or symptoms and may be related to COVID-19. - Related Data Allergies/Adverse Reactions: No Known Allergies Allergy (Verified 09/19/17 09:41) Past Medical History Renal/ Medical History: Denies: Hx Peritoneal Dialysis - Immunizations Immunizations up to date: Yes Hx Diphtheria, Pertussis, Tetanus Vaccination: Yes - 2017 Physical Exam - Vital signs Vitals: Temp Pulse Resp BP Pulse Ox 98.5 F 68 16 112/60 100 06/05/20 11:32 06/05/20 11:32 06/05/20 11:32 06/05/20 11:32 06/05/20 11:32 Course - Vital Signs Vital signs: Temp Pulse Resp BP Pulse Ox 98.5 F 68 16 112/60 100 06/05/20 11:32 06/05/20 11:32 06/05/20 11:32 06/05/20 11:32 06/05/20 11:32 Doctor's Discharge - Discharge Referrals: AVRIL GARCIA, [employer] [Primary Care Provider] - Follow up as needed
[2020-06-05 12:22] LABS: ABSOLUTE EOSINOPHILS # (AUTO) 0.1 10^3/uL (0.0-0.6); ABSOLUTE LYMPHOCYTES (AUTO) 2.3 10^3/uL (0.5-4.7); ABSOLUTE MONOCYTES (AUTO) 0.3 10^3/uL (0.1-1.4); ABSOLUTE NEUT (AUTO) 3.2 10^3/uL (1.7-8.2); BASOPHILS % (AUTO) 0.3 % (0-2); EOSINOPHILS % (AUTO) 0.9 % (0-6); HEMATOCRIT 37.2 % (36.0-47.0); HEMOGLOBIN 12.7 g/dL (12.0-15.5); LYMPHOCYTES % (AUTO) 38.9 % (13-45); MEAN CORPUSCULAR HEMOGLOBIN 28.4 pg (27.0-33.4); MEAN CORPUSCULAR HGB CONC 34.1 g/dL (32.0-36.0); MEAN CORPUSCULAR VOLUME 83 fl (80-97); MONOCYTES % (AUTO) 5.9 % (3-13); PLATELET COUNT 284 10^3/uL (150-450); RED BLOOD COUNT 4.47 10^6/uL (3.72-5.28); RED CELL DISTRIBUTION WIDTH 13.7 % (11.5-14.0); TOTAL CELLS COUNTED % (AUTO) 100 %; WHITE BLOOD COUNT 5.9 10^3/uL (4.0-10.5)
--- NOTE | 2020-06-05 12:34 | EKG REPORT ---
SEVERITY:- BORDERLINE ECG - SINUS RHYTHM BORDERLINE T ABNORMALITIES, ANTERIOR LEADS : Confirmed by: Denver Moreau MD 05-Jun-2020 12:33:56
--- NOTE | 2020-06-05 12:44 | RADIOLOGY REPORT (SQ) ---
EXAM DESCRIPTION: CHEST SINGLE VIEW IMAGES COMPLETED DATE/TIME: 06/05/2020 12:21 pm REASON FOR STUDY: chest pain COMPARISON: None. EXAM PARAMETERS: NUMBER OF VIEWS: One view. TECHNIQUE: Single frontal radiographic view of the chest acquired. RADIATION DOSE: NA LIMITATIONS: None. FINDINGS: LUNGS AND PLEURA: No opacities, masses or pneumothorax. No pleural effusion. MEDIASTINUM AND HILAR STRUCTURES: No masses. Contour normal. HEART AND VASCULAR STRUCTURES: Heart normal in size. Normal vasculature. BONES: No acute findings. HARDWARE: None in the chest. OTHER: No other significant finding. IMPRESSION: NO ACUTE RADIOGRAPHIC FINDING IN THE CHEST. TECHNICAL DOCUMENTATION: JOB ID: [id number] 2010 [employer]- All Rights Reserved Reading location - IP/workstation name: [email or web address]
[2020-06-05 12:52] LABS: ALBUMIN 4.5 g/dL (3.5-5.0); ALKALINE PHOSPHATASE 72 U/L (38-126); ANION GAP 8 (5-19); ASPARTATE AMINO TRANSFERASE 26 U/L (14-36); BILIRUBIN,DIRECT 0.3 mg/dL (0.0-0.4); BILIRUBIN,TOTAL 0.5 mg/dL (0.2-1.3); BLOOD UREA NITROGEN 14 mg/dL (7-20); CALCIUM 9.5 mg/dL (8.4-10.2); CARBON DIOXIDE 30 mmol/L (22-30); CHLORIDE 102 mmol/L (98-107); CREATINE KINASE 92 U/L (30-135); GLUCOSE 97 mg/dL (75-110); POTASSIUM 4.1 mmol/L (3.6-5.0); TOTAL PROTEIN 7.4 g/dL (6.3-8.2)
[2020-06-05 13:04] LABS: CREATINE KINASE MB 0.48 ng/mL (<4.55)
[2020-06-05 13:05] LABS: TROPONIN I < 0.012 ng/mL
[2020-06-05] MEDS ORDERED: KETOROLAC TROMETHAMINE 60 MG/2 ML SDV IM ONE (14:24)
--- NOTE | 2020-06-05 14:30 | ER Document Report ---
ED General - General Chief Complaint: Chest Pain Stated Complaint: CHEST PAIN,LEFT ARM PAIN Time Seen by Provider: 06/05/20 11:47 Primary Care Provider: AVRIL GARCIA APRN [NO LOCAL MD] - Follow up as needed TRAVEL OUTSIDE OF THE [place] IN LAST 30 DAYS: No - HPI Notes: Patient is a 20-year-old female with no significant past medical history who presents with left-sided rib pain. Patient states symptoms began about 1 week ago. It woke her up from sleep. It is worse with movement of her left arm and palpation of the ribs under her breast and into her back. She denies any rashes. No trauma. No increase in activity or working out. She states she has tried Tylenol and ibuprofen with minimal relief. She states it hurts worse when she takes a deep breath. She denies any cough or cold symptoms. No fevers or chills. She does mention that she recently drove to [place] to go to [facility] at the end of April. She denies any leg swelling. She has never had a PE or DVT before. She is not on any hormonal control. Patient is accompanied by her who helps translate. She is a non-smoker. - Related Data Allergies/Adverse Reactions: No Known Allergies Allergy (Verified 09/19/17 09:41) Past Medical History - General Information source: Patient, Relative - Social History Smoking Status: Never Smoker Chew tobacco use (# tins/day): No Frequency of alcohol use: Rare Drug Abuse: None Family History: None, Reviewed & Not Pertinent Renal/ Medical History: Denies: Hx Peritoneal Dialysis - Immunizations Immunizations up to date: Yes Hx Diphtheria, Pertussis, Tetanus Vaccination: Yes - 2016 Review of Systems - Review of Systems Notes: CONSTITUTIONAL: No fever, fatigue or weight loss. SKIN: No rash. HENT: No congestion, ear pain, or sore throat. CARDIOVASCULAR: No chest pain or edema. RESPIRATORY: No cough, shortness of breath, congestion, or wheezing. GASTROINTESTINAL: No abdominal pain, nausea, vomiting, or diarrhea. GENITOURINARY: No dysuria. MUSCULOSKELETAL: Positive for left-sided rib pain. LYMPHATIC: No swollen glands. NEUROLOGIC: No headache, focal weakness or sensory changes. HEMATOLOGIC: No unusual bruising or bleeding. PSYCHIATRIC: No depression or anxiety. Physical Exam - Vital signs Vitals: Temp Pulse Resp BP Pulse Ox 98.5 F 68 16 112/60 100 06/05/20 11:32 06/05/20 11:32 06/05/20 11:32 06/05/20 11:32 06/05/20 11:32 - General General appearance: Appears well In distress: None Notes: VITAL SIGNS: Within normal limits. GENERAL: No acute distress, non-toxic appearance. HEAD: Normal with no signs of head trauma. EYES: Conjunctiva normal, no discharge. EARS: Hearing grossly intact. NECK: Normal range of motion, no tenderness, supple, no lymphadenopathy, No adenopathy, no JVD. CHEST: Clear breath sounds bilaterally. No wheezes, rales, or rhonchi. CARDIAC: Regular rate and rhythm. S1 and S2, without murmurs, gallops, or rubs. VASCULAR: No Edema. ABDOMEN: Normal and soft with no tenderness MUSCULOSKELETAL: Good range of motion of all major joints. Extremities without clubbing, cyanosis or edema. Reproducible discomfort to palpation of the lateral and anterior left ribs under the breast as well as the anterior chest. No rashes present. NEUROLOGICAL: Alert and oriented x 3. No focal sensory or strength deficits. Speech normal. Follows commands appropriately. PSYCHIATRIC: Normal Affect, judgement and mood. SKIN: Normal appearance with no rashes or lesions. Course - Re-evaluation Re-evalutation: 06/05/20 14:29 Patient appears well on exam. Her pain is very reproducible with palpation and movement of her left arm. I do suspect this is musculoskeletal. However, she did recently drive from [place]. I will order a D-dimer to rule out a PE. Patient will be given Toradol. Patient's D-dimer was negative. She states she did have some improvement from Toradol. I instructed her that this is likely musculoskeletal as it is reproducible. Patient will be discharged with Naprosyn. She was told to follow-up with her PCP. Patient was given strict return precautions. Her and her are very agreeable to the plan. All her questions have been answered. 06/05/20 20:03 - Vital Signs Vital signs: Temp Pulse Resp BP Pulse Ox 98.5 F 69 20 100/60 100 06/05/20 11:32 06/05/20 16:23 06/05/20 16:23 06/05/20 16:23 06/05/20 16:23 - Laboratory Results Result Diagrams: 06/05/20 12:10 06/05/20 12:10 Critical Laboratory Results Reviewed: No Critical Results - Radiology Results Critical Radiology Results Reviewed: No Critical Results - EKG Interpretation by Me EKG shows normal: Sinus rhythm Rate: Normal Rhythm: NSR When compared to previous EKG there are: Previous EKG unavailable Additional EKG results interpreted by me: 06/05/20 14:30 Sinus rhythm at a rate of 71. QTc 413. No acute ST changes. No previous EKG available for comparison. Discharge - Discharge Clinical Impression: Rib pain on left side Condition: Stable Disposition: HOME, SELF-CARE Instructions: Chest Wall Pain ([facility]) Additional Instructions: Your work-up today is reassuring. You may use warm compresses for pain control. You may also use Tylenol. I will write you a prescription for naproxen. Do not take ibuprofen with this medication because they are similar. Please follow-up with your family doctor. Please return to the ER for any worsening pain or symptoms. Prescriptions: Naproxen [Naprosyn 250 mg Tablet] 250 mg PO BID PRN 7 Days #14 tablet PRN Reason: For Pain Referrals: AVRIL GARCIA, SALES REPRESENTATIVE [employer] [NO LOCAL MD] - Follow up as needed
[2020-06-05 16:25] VITALS: BP 100/60
== END 2020-06-05 16:23 | disposition home or self-care (01) ==
LOC: ER 11:21
DX: R07.81 Pleurodynia (principal)
CPT/HCPCS: 93005; 99285; 96372; 36415; 82553; 82550; 84443; 84703; 85025; 80053; 84484; 85379; 71045; 93010; J1885